=== PATIENT | male | born 1975 | race African-American/Black ===

== ENCOUNTER 2016-12-15 16:45 | Emergency (ER) | payer OTHER ==
[~2016-12-15] VITALS: Ht 170.2 cm; Wt 81.7 kg
[2016-12-15] MEDS ORDERED: LIORESAL 10 MG10 MG PO (17:10)
[2016-12-15] MEDS ORDERED: MOBIC15 MG PO (17:10)
[2016-12-15] MEDS ORDERED: LIDODERM 5%1 PATC1 TRANSDERM (17:10)
[2016-12-15 17:30] VITALS: BP 165/92
== END 2016-12-15 17:30 | disposition home or self-care (01) ==
LOC: ER 16:45
DX: S16.1XXA Strain of muscle, fascia and tendon at neck level, initial encounter (principal); R51 Headache; F10.99 Alcohol use, unspecified with unspecified alcohol-induced disorder; V89.2XXA Person injured in unspecified motor-vehicle accident, traffic, initial encounter; Y93.89 Activity, other specified; Y92.89 Other specified places as the place of occurrence of the external cause; Y99.8 Other external cause status